=== PATIENT | female | born 1965 | race Caucasian/White ===

== ENCOUNTER 2021-01-15 09:30 | Emergency (ER) | payer SELFPAY ==
[~2021-01-15] VITALS: Ht 165.1 cm; Wt 114.6 kg
--- NOTE | 2021-01-15 09:58 | NUR ---
FIRST CONTACT WITH PT: Lower abdominal pain n/v no loose stools, x 3 days. States "I think its my diverticulitis". Covid kevin x2 jun. PT TO BED WITH STEADY GAIT. POSTIONED TO COMFORT. ATTACHED TO MONITORS. VSS. TORIBIO. AT BEDSIDE. AWAITING ORDERS.
[2021-01-15] MEDS ORDERED: MORPHINE SULFATE 4 MG/ML, 1ML ONE (10:50)
[2021-01-15] MEDS ORDERED: ONDANSETRON 2MG/ML, 2ML ONE (10:50)
[2021-01-15] MEDS ORDERED: MORPHINE SULFATE 4 MG/ML, 1ML IVPush PRN (11:00)
[2021-01-15] MEDS ORDERED: SODIUM CHLORIDE FLUSH 10ML SYR IVF ONE (11:00)
[2021-01-15] MEDS ORDERED: ONDANSETRON 2MG/ML, 2ML IVPush ONE (11:00)
[2021-01-15] MEDS ORDERED: SODIUM CHLORIDE 0.9% 1,000 ML IV ONE (11:00)
--- NOTE | 2021-01-15 11:00 | NUR ---
PT MEDICATED PT PER EMAR. VSS. NADN.
[2021-01-15 11:06] LABS: BASOPHILS % (AUTO) 1 % (0-1); EOSINOPHILS % (AUTO) 1 % (1-7); LYMPHOCYTES % (AUTO) 17 % (22-44); MEAN CORPUSCULAR HEMOGLOBIN 28.9 pg (27.0-34.8); MEAN CORPUSCULAR HGB CONC 33.1 g/dL (32.4-35.8); MEAN PLATELET VOLUME 10.7 fL (7.4-10.4); MONOCYTES % (AUTO) 9 % (2-9); NEUTROPHILS % (AUTO) 74 % (42-75); PLATELET COUNT 247 x10^3/uL (130-400); RED BLOOD COUNT 4.26 x10^6/uL (3.82-5.3); RED CELL DISTRIBUTION WIDTH 14.2 % (9.6-15.2)
[2021-01-15 11:08] LABS: ALBUMIN 3.4 g/dL (3.4-5.0); ANION GAP 8 mmol/L (5-15); CALCIUM 8.8 mg/dL (8.5-10.1); CHLORIDE 107 mmol/L (98-107)
[2021-01-15 11:14] LABS: ALANINE AMINOTRANSFERASE 14 U/L (12-78); ALKALINE PHOSPHATASE 70 U/L (45-117); BILIRUBIN,TOTAL 0.9 mg/dL (0.2-1.0); CREATININE 0.59 mg/dL (0.55-1.02); TOTAL PROTEIN 7.3 g/dL (6.4-8.2)
[2021-01-15 11:15] LABS: MICROSCOPIC INDICATED
--- NOTE | 2021-01-15 11:46 | NUR ---
PT RESTING IN BED COMFORTABLY. VSS. TORIBIO.
--- NOTE | 2021-01-15 12:53 | NUR ---
PT TO CT.
[2021-01-15] MEDS ORDERED: OMNIPAQUE 350 MG/ML, 150 ML BOTTLE ONE (13:44)
--- NOTE | 2021-01-15 13:54 | NUR ---
PT BACK FROM CT. RESTING IN BED. VSS. NADN. AWAITING RECHECK
[2021-01-15 15:29] VITALS: BP 122/77
--- NOTE | 2021-01-15 15:31 | NUR ---
Patient given discharge instructions and they have confirmed that they understand the instructions. Patient ambulatory with steady gait. NAD, all questions answered appropriately, denies additional needs at this time. No personal belongings left in room after discharge.
== END 2021-01-15 15:34 | disposition home or self-care (01) ==
LOC: ED 09:58
DX: K57.32 Diverticulitis of large intestine without perforation or abscess without bleeding (principal); E03.9 Hypothyroidism, unspecified; K21.9 Gastro-esophageal reflux disease without esophagitis; Z88.2 Allergy status to sulfonamides
CPT/HCPCS: 36415; 74177; 80053; 81001; 83690; 84703; 85025; 87086; 96361; 96374; 96375; 99285; J2270; J2405; J7030; Q9967